=== PATIENT | male | born 1990 | race Caucasian/White ===

== ENCOUNTER 2019-06-07 11:36 | Emergency (ER) | payer MEDICAID, SELFPAY ==
[2019-06-07 11:41] VITALS: BP 149/86; PULSE 99; RESP 18; TEMP 36.2; O2SAT 94
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
[2019-06-07] MEDS: Acetaminophen 325 MG TAB 650 MG PO (12:23)
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
--- NOTE | 2019-06-07 13:21 | DI.VRAD_ITS ---
PROCEDURE INFORMATION: Exam: XR Left Shoulder Exam date and time: 06/07/2019 12:46 PM Age: 29 years old Clinical history: Pain; Shoulder; Left TECHNIQUE: Imaging protocol: XR Left shoulder. Views: 2 or more views. COMPARISON: No relevant prior studies available. FINDINGS: Bones/joints: Normal. Soft tissues: Normal. IMPRESSION: No acute findings. Dictated and Authenticated by: Matias Cosme MD. Ordering:LANEY Donnelly MD
--- NOTE | 2019-06-07 13:23 | DI.VRAD_ITS ---
PROCEDURE INFORMATION: Exam: XR Left Elbow Exam date and time: 06/07/2019 12:50 PM Age: 29 years old Clinical history: Pain; Elbow; Left TECHNIQUE: Imaging protocol: XR Left elbow. Views: 3 or more views. COMPARISON: No relevant prior studies available. FINDINGS: Bones/joints: Slight irregularity to the coronoid process, likely chronic. No fracture or dislocation. No joint effusion. Soft tissues: Normal. IMPRESSION: No acute findings. Dictated and Authenticated by: Matias Cosme MD. Ordering:LANEY Donnelly MD
[2019-06-07 13:39] VITALS: BP 128/90; PULSE 85; RESP 16; TEMP 37; O2SAT 96
== END 2019-06-07 13:45 | disposition home or self-care (01) ==
PROVIDERS: Emergency Provider Physician Assistant; PCP General Practice
DX: S09.90XA Unspecified injury of head, initial encounter (principal); S40.012A Contusion of left shoulder, initial encounter; S40.022A Contusion of left upper arm, initial encounter; S20.212A Contusion of left front wall of thorax, initial encounter; R51 Headache; R11.2 Nausea with vomiting, unspecified; V47.5XXA Car driver injured in collision with fixed or stationary object in traffic accident, initial encounter
CPT/HCPCS: 99284; 70450; 71046; 71100; 73030; 73080; 99285

== ENCOUNTER 2019-08-09 13:29 | Emergency (ER) | payer MEDICAID, SELFPAY ==
[2019-08-09 13:34] VITALS: BP 117/56; PULSE 114; RESP 18; TEMP 38.3; O2SAT 95
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
[2019-08-09] MEDS: Normal Saline 1,000 ML 1000 ML IV ×3 (13:55→14:59)
[2019-08-09] MEDS: Acetaminophen 500 MG TAB 1000 MG PO (14:03)
[2019-08-09] MEDS: Ondansetron 4 MG/2 ML VIAL IVP (14:03)
[2019-08-09] MEDS: Ketorolac 15 MG/ML VIAL IVP (14:03)
[2019-08-09 14:05] LABS: Abs Immature Grans 0.01 k/cumm (0.0-0.09); Absolute Basophil Count 0.01 k/cumm (0.0-0.2); Absolute Eosinophil Count 0.04 k/cumm (0.0-0.7); Absolute Lymphocyte Count 0.54 k/cumm (1.2-3.4); Absolute Neutrophil Count 5.33 k/cumm (1.2-6.7); Basophils % 0.2; Eosinophils % 0.6; HCT 43.3 % (40.0-50.0); HGB 15.4 g/dL (13.5-17.5); Immature Grans % 0.2 %; Lymphocytes % 8.4; Mean Corp. HGB Concentration 35.6 g/dL (32.0-36.0); Mean Corpuscular Hemoglobin 31.7 pg (27.0-33.0); Mean Corpuscular Volume 89.1 fL (80-95); Mean Platelet Volume 9.3 fL (8.0-11.0); Monocytes % 7.8; Neutrophils % 82.8; Platelet Count 212 x1000/uL (130-400); RBC 4.86 m/cumm (4.50-6.00); RBC Distribution Width 13.5 % (11.8-14.1); White Blood Cell Count 6.43 k/cumm (4.4-10.8)
[2019-08-09 14:18] LABS: ALT 24 U/L (16-63); AST 15 U/L (15-37); Albumin 3.9 g/dL (3.4-5.0); Alkaline Phosphatase 66 U/L (46-116); Anion Gap 11.3 mmol/L (3-11); BUN 15 mg/dL (7-18); Bilirubin, Total 0.5 mg/dL (0.2-1.0); CO2 25.7 mmol/L (21.0-32.0); CREATININE 0.97 mg/dL (0.70-1.30); Calcium 8.2 mg/dL (8.5-10.1); Chloride 100 mmol/L (98-107); Glucose 95 mg/dL (74-106); Potassium 3.9 mmol/L (3.5-5.1); Sodium 137 mmol/L (136-145); Total Protein 7.4 g/dL (6.4-8.2)
--- NOTE | 2019-08-09 14:36 | DI.RAD_ITS ---
EXAM: XR CHEST 2V PA AND LATERAL INDICATION: FEVER, COUGH. COMPARISON: XR RIBS LT W PA AND LAT CHEST from 06/07/2019 TECHNIQUE: 2D digital imaging was performed. FINDINGS: Heart size is normal. The lungs are well inflated and clear. No infiltrate or effusion is seen. Th ere is a question of mild bronchial wall thickening, which could indicate bronchitis. There is no pn eumothorax. No thoracic compression fractures are seen. IMPRESSION: Question of mild bronchial wall thickening, which could indicate bronchitis. No focal pulmonary cons olidation.
[2019-08-09 15:01] VITALS: BP 98/48; PULSE 96; RESP 15; TEMP 38; O2SAT 96
--- NOTE | 2019-08-09 15:31 | DI.VRAD_ITS ---
PROCEDURE INFORMATION: Exam: XR Chest, 2 Views Exam date and time: 08/09/2019 2:36 PM Age: 29 years old Clinical indication: Other: Fever, cough TECHNIQUE: Imaging protocol: XR of the chest Views: 2 views. COMPARISON: CR XR RIBS LT W PA LAT CHEST 06/07/2019 12:39 PM FINDINGS: Lungs: Bilateral perihilar haziness and streaky-like opacities. Mild segmental bronchial wall thickening. Pleural space: Unremarkable. No pleural effusion. No pneumothorax. Heart/Mediastinum: Unremarkable. No cardiomegaly. Bones/joints: Unremarkable. IMPRESSION: Findings favor an acute viral illness/bronchitis. No evidence of lobar pneumonia. Dictated and Authenticated by: Florentino Colmenares MD. Ordering:RAVINDER Moya MD
[2019-08-09 15:40] VITALS: BP 104/39; PULSE 98; RESP 16; TEMP 38.2; O2SAT 97
[2019-08-09 15:53] VITALS: BP 104/39; PULSE 98; RESP 16; TEMP 38.2; O2SAT 97
[2019-08-09] MEDS: Ondansetron O.D.T. 4 MG TABEF, 3 TABS/BTL PO (15:56)
--- NOTE | 2019-08-10 13:32 | NUR.NOTE ---
Nursing Note: Patient called asking about his flu result. After looking it up, he was told that it was negative. Sarai Jiménez.
== END 2019-08-09 15:58 | disposition home or self-care (01) ==
PROVIDERS: Emergency Provider Emergency Medicine; PCP General Practice
DX: J20.8 Acute bronchitis due to other specified organisms (principal); F17.210 Nicotine dependence, cigarettes, uncomplicated
CPT/HCPCS: 36415; 80053; 87449; 96361; 96374; 96375; 99284; 71046; 85025; J1885; J2405

== ENCOUNTER 2020-07-31 21:39 | Emergency (ER) | payer MEDICAID, SELFPAY ==
--- NOTE | 2020-07-31 21:50 | ED.GENADUL_ITS ---
Discharge Plan Disposition Patient Disposition: HOME Condition: Good Discharge Details Clinical Impression: Gastritis Primary Care Provider: Jacoby Velasquez ED Provider: Jose J Parsons Home Meds and New Rx's Prescriptions: New sucralfate [Carafate] 1 gram tablet 1 g PO BID Qty: 60 RF: 0 Continued bupropion HCl [Wellbutrin XL] 300 MG tablet extended release 24 hr 300 mg PO DAILY RF: 0 ibuprofen 600 MG tablet 600 mg PO QID PRN PRNQty: 30 RF: 0 lamotrigine [Lamictal] 200 mg Tablet 300 mg PO HS RF: 0 famotidine 20 mg Tablet 20 mg PO BID RF: 0 riboflavin (vitamin B2) [Vitamin B-2] 100 mg Tablet 100 mg PO DAILY RF: 0 Vyvanse 30 mg Capsule 30 mg PO DAILY RF: 0 Discharge Instructions Instructions: Gastritis (ED) Additional Instructions: At this time your laboratory work-up is very reassuring. Your symptoms appear consistent with gastritis at this time. Please resume taking your famotidine, continue to take the omeprazole that you are prescribed, and take the new Carafate as directed. Use the Zofran as needed. Avoid any spicy foods, caffeine-based products, ibuprofen, or Tylenol. If your symptoms do not improve over the next week, you may require further testing to look for something called h. pylori, which is a type of bacteria that can cause chronic gastritis. If you notice any worsening of your symptoms, or any new symptoms such as vomiting, diarrhea, fever, chills, shortness of breath, chest pain, numbness, weakness, or fainting , please return immediately to the emergency department for reevaluation. Please follow up with your primary care provider as soon as possible for reassessment and reevaluation. As always, it was a pleasure participating in your medical care today. Stand Alone Forms: Work Release Medical Decision Making 30-year-old male with a past medical history of gastritis, mood disorder, presents today for evaluation of epigastric pain, nausea and vomiting. 3 days ago the patient states that he had mild epigastric pain, had an episode of vomiting with a small amount of blood, his symptoms had 2-3 episodes of vomiting over the last 3 days, none of the other episodes have had any blood. He has not had any desire to eat, he has felt nauseous. He did see an urgent care in [place], at which time they prescribed omeprazole and Zofran, which she states has not helped. He normally takes famotidine twice daily but was told to stop this. Patient denies any history of previous abdominal surgeries. He denies any recent spicy food intake, alcohol intake, or change in diet. He denies any other complaints at this time. Symptoms are made worse with food. Improved by nothing. He has not been drinking any significant caffeine over the last few days. No other modifying factors. Physical exam shows no signs of an acute surgical abdomen, mild left upper quadrant tenderness. Symptoms appear c onsistent with notable gastritis. We will do IV Protonix and famotidine, gently rehydrate with a liter of normal saline, give a GI cocktail and Carafate, get basic labs to rule out pancreatitis, monitor closely and reassess. No indication for emergent surgeries at this time. 11:35 PM Patient's laboratory work-up has returned, after GI cocktail and Protonix and famotidine he is feeling better. Laboratory work-up is normal, hemoglobin stable, electrolytes normal, lipase normal. Patient is feeling better and was able to tolerate a p.o. trial here in the ED. At this time signs and symptoms appear consistent with gastritis. Repeat exam continues to show no signs of an acute surgical abdomen, no indication for emergent imaging. Will recommend continuation of omeprazole and famotidine at home, will give a prescription for Carafate. Recommend avoidance of spicy foods, citrus-based products, caffeine, coffee. Also discussed with him the importance of follow-up with his PCP for potential helical factor pylori testing, as well as potential EGD in the future if his symptoms do not improve. Discussed red flags which to return. I have extensively reviewed the treatment plan and discharge instructions with the patient. I have addressed all patient concerns at this time. The patient was made aware of what symptoms to monitor for that would warrant a return to the emergency department. Discussed the plan with the patient, they demonstrate verbal understanding and agreement with our assessment and plan at this time. The documentation in this chart was dictated using [employer] dictation software. Please excuse any dictation errors. HPI General Date/Time Provider Initiated Documentation: 07/31/20 21:41 . HPI Narrative: 30-year-old male with a past medical history of gastritis, mood disorder, presents today for evaluation of epigastric pain, nausea and vomiting. 3 days ago the patient states that he had mild epigastric pain, had an episode of vomiting with a small amount of blood, his symptoms had 2-3 episodes of vomiting over the last 3 days, none of the other episodes have had any blood. He has not had any desire to eat, he has felt nauseous. He did see an urgent care in [place], at which time they prescribed omeprazole and Zofran, which she states has not helped. He normally takes famotidine twice daily but was told to stop this. Patient denies any history of previous abdominal surgeries. He denies any recent spicy food intake, alcohol intake, or change in diet. He denies any other complaints at this time. Symptoms are made worse with food. Improved by nothing. He has not been drinking any significant caffeine over the last few days. No other modifying factors. Related Data Home Medications Medication Instructions Recorded Confirmed bupropion HCl [Wellbutrin XL] 300 mg PO DAILY 06/08/14 07/31/20 ibuprofen 600 mg PO QID PRN PRN #30 tab 02/07/16 07/31/20 famotidine 20 mg PO BID 06/07/19 07/31/20 lamotrigine [Lamictal] 300 mg PO HS 06/07/19 07/31/20 Vyvanse 30 mg PO DAILY 07/31/20 07/31/20 riboflavin (vitamin B2) [Vitamin 100 mg PO DAILY 07/31/20 07/31/20 B-2] sucralfate [Carafate] 1 g PO BID #60 tab 07/31/20 Previous Rx's Medication Instructions Recorded ibuprofen 600 mg PO QID PRN PRN #30 tab 02/07/16 sucralfate [Carafate] 1 g PO BID #60 tab 07/31/20 Allergies Allergy/AdvReac Type Severity Reaction Status Date / Time No Known Allergies Allergy Unverified 08/09/19 13:38 General KEN: 3 Review of Systems All systems reviewed & are unremarkable except as noted in HPI and below PFSH Medical History (Updated 07/31/20 @ 21:55 by Jose J Parsons DO) No significant past medical history Surgical History History of hand surgery Social History Smoking/Tobacco Use Status: Current every day Smoking risk assessment performed?: Yes Alcohol Intake: current Alcohol Intake frequency: a few times a month Drug use: Current Sobriety Substance use type: does not use Do you feel safe at home: Yes Do you feel safe in your relationship?: Yes Exam Narrative Exam Narrative: 1.Const: Well-nourished, Well-developed, appearing stated age 2.Eyes: PERRL, no conjunctival injection, and symmetrical lids. 3.ENT: Atraumatic external nose and ears. Notably poor dentition, notably dry MM. Neck: Symmetric, trachea midline, No thyromegaly. 4.CVS: +S1/S2, No murmurs or gallops. Peripheral pulses 2+ and equal in all extremities. Brisk capillary refill in all extremities. 5.RESP: Unlabored respiratory effort. Clear to auscultation bilaterally. No wheezes rales or rhonchi 6.GI: Soft, nondistended, no hepatosplenomegaly. No guarding or rebound. No pain at McBurney's point, negative Beyer sign, mild epigastric tenderness in the left upper epigastric quadrant. No signs of an acute surgical abdomen. 7.MSK: Normocephalic/Atraumatic, Extremities w/o deformity or ttp No cyanosis or clubbing, Normal movement of all extremities 8.Skin: Warm, Dry. No rashes or lesions. 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 Sensation grossly intact, no focal neurologi c deficits. 10.Psych: (AAO) x3. Appropriate mood and affect
[2020-07-31 21:51] VITALS: BP 156/73; PULSE 104; RESP 16; TEMP 36.4; O2SAT 97
[2020-07-31 22:06] LABS: Nucleated RBC 0 %
[2020-07-31 22:08] LABS: MCHC 35.1 % (32.0-36.0)
[2020-07-31] MEDS: Normal Saline 1,000 ML 1000 ML IV (22:12)
[2020-07-31] MEDS: FAMOTIDINE 20 MG/50 ML BAG 200 MG IVPB (22:12)
[2020-07-31] MEDS: Sucralfate 1 GM TAB PO (22:13)
[2020-07-31] MEDS: Ondansetron 4 MG/2 ML VIAL IVP (22:17)
[2020-07-31] MEDS: Pantoprazole 40 MG VIAL IVP (22:17)
[2020-07-31 22:31] LABS: Abs Immature Grans 0.03 10^3/uL (0.0-0.06); Absolute Basophil Count 0.02 10^3/uL (0.0-0.2); Absolute Eosinophil Count 0.12 10^3/uL (0.0-0.7); Absolute Lymphocyte Count 2.61 10^3/uL (1.2-3.4); Absolute Monocyte Count 0.48 10^3/uL (0.1-0.8); Absolute Neutrophil Count 6.86 10^3/uL (1.2-6.7); Basophils % 0.2; Eosinophils % 1.2; HCT 46.2 % (40.0-50.0); HGB 16.2 g/dL (13.5-17.5); Immature Grans % 0.3; Lymphocytes % 25.8; MCH 30.9 pg (27.0-33.0); MCV 88.2 fL (80-95); Monocytes % 4.7; Neutrophils % 67.8; Platelet Count 267 10^3/uL (130-400); RBC 5.24 10^6/uL (4.36-5.78)
[2020-07-31 22:41] LABS: ALT 32 U/L (16-63); AST 16 U/L (15-37); Albumin 4.1 g/dL (3.4-5.0); Alkaline Phosphatase 73 U/L (46-116); BUN 15 mg/dL (7-18); Bilirubin, Total 0.5 mg/dL (0.2-1.0); Calcium 8.9 mg/dL (8.5-10.1); Chloride 102 mmol/L (98-107); Glucose 104 mg/dL (74-106); Potassium 3.6 mmol/L (3.5-5.1); Sodium 138 mmol/L (136-145); Total Protein 7.8 g/dL (6.4-8.2)
[2020-07-31 22:43] LABS: WBC 10.12 10^3/uL (4.4-10.8)
[2020-07-31 22:54] LABS: Lipase 74 U/L (73-393)
[2020-07-31 23:28] VITALS: BP 142/86; PULSE 82; RESP 16; O2SAT 98
--- NOTE | 2020-07-31 23:39 | NUR.NOTE ---
referal sent to cm for establihment of pcp 07/31/20Nursing Note:
== END 2020-07-31 23:35 | disposition home or self-care (01) ==
PROVIDERS: Emergency Provider Student in an Organized Health Care Education/Training Program; PCP General Practice
DX: K29.00 Acute gastritis without bleeding (principal); R11.2 Nausea with vomiting, unspecified
CPT/HCPCS: 36415; 80053; 83690; 96361; 96365; 96375; 99284; 85025; J2405

== ENCOUNTER 2020-10-17 21:27 | Emergency (ER) | payer MEDICAID, SELFPAY ==
[2020-10-17 21:40] VITALS: BP 125/75; PULSE 95; RESP 18; TEMP 36; O2SAT 96
[2020-10-17] MEDS: Cyclobenzaprine 10 MG TAB PO (22:11)
[2020-10-17] MEDS: Ibuprofen 800 MG TAB PO (22:11)
[2020-10-17] MEDS: Cyclobenzaprine 10 MG TAB, 3 TABS/BTL PO (22:17)
--- NOTE | 2020-10-17 22:17 | ED.GENADUL_ITS ---
Discharge Plan Disposition Patient Disposition: HOME Condition: Stable Discharge Details Clinical Impression: Back muscle spasm Primary Care Provider: Romy Sampson ED Provider: Nela Leung Home Meds and New Rx's Prescriptions: Continued bupropion HCl [Wellbutrin XL] 300 MG tablet extended release 24 hr 300 mg PO DAILY RF: 0 ibuprofen 600 MG tablet 600 mg PO QID PRN PRNQty: 30 RF: 0 lamotrigine [Lamictal] 200 mg Tablet 300 mg PO HS RF: 0 famotidine 20 mg Tablet 20 mg PO BID RF: 0 riboflavin (vitamin B2) [Vitamin B-2] 100 mg Tablet 100 mg PO DAILY RF: 0 Vyvanse 30 mg Capsule 30 mg PO DAILY RF: 0 Discharge Instructions Instructions: Muscle Spasm (ED) Additional Instructions: Alternate ice and heat. Take Tylenol and or ibuprofen every 4-6 hours as needed for pain. Use Flexeril as directed please be aware it may cause you to be sleepy no operating heavy machinery or driving while using this medication Try massage he should feel better in the next few Return to the ED R for any worsening shortness of breath, loss of bowel or bladder control or any concern. Stand Alone Forms: Work Release Referrals: Romy Sampson [Primary Care Provider] - Medical Decision Making 30-year-old male presents to the ER with chief complaint of left-sided posterior back pain after heavy lifting while changing out a transmission in a car. He states this happened around 2:00 this afternoon. He did take some ibuprofen at 2:00. Pain is worse with movement. He denies any loss of bowel or bladder control. Denies any numbness no other complaints. Patient given Flexeril, ibuprofen 80 mg and lidocaine patch. Clinical exam is consistent with a muscle spasm and muscle strain. No evidence of midline C, T, L-spine tenderness no crepitus no step-off. Patient is alert and oriented. Denies any loss of bowel or bladder control no radiation of pain into lower extremities, no saddle anesthesia. At this time I do not feel that imaging is necessary. Patient is requesting a work note. Discussed home care and strict return instructions, verbalized HPI General Mode of arrival: ambulatory . Date/Time Provider Initiated Documentation: 10/17/20 21:58 . Limitations to Documentation: no limitations . Information obtained by: patient . HPI Narrative: 30-year-old male presents to the ER with chief complaint of left-sided posterior back pain after heavy lifting while changing out a transmission in a car. He states this happened around 2:00 this afternoon. He did take some ibuprofen at 2:00. Pain is worse with movement. He denies any loss of bowel or bladder control. Denies any numbness no other complaints. Related Data Home Medications Medication Instructions Recorded Confirmed bupropion HCl [Wellbutrin XL] 300 mg PO DAILY 06/08/14 10/17/20 ibuprofen 600 mg PO QID PRN PRN #30 tab 02/07/16 10/17/20 famotidine 20 mg PO BID 06/07/19 10/17/20 lamotrigine [Lamictal] 300 mg PO HS 06/07/19 10/17/20 Vyvanse 30 mg PO DAILY 07/31/20 10/17/20 riboflavin (vitamin B2) [Vitamin 100 mg PO DAILY 07/31/20 10/17/20 B-2] Previous Rx's Medication Instructions Recorded ibuprofen 600 mg PO QID PRN PRN #30 tab 02/07/16 Allergies Allergy/AdvReac Type Severity Reaction Status Date / Time No Known Allergies Allergy Unverified 10/17/20 21:53 General Stated Complaint: Nk/Back Pain KEN: 3 Review of Systems All systems reviewed & are unremarkable except as noted in HPI and below ENT Ears, Nose, Mouth, and Throat: Denies neck pain Musculoskeletal Musculoskeletal: Reports as per HPI, Reports back pain (Muscle spasm noted to the left trapezius), Denies deformity, Denies limited range of motion, Denies neck pain, Denies numbness, Denies radiating pain into limb, Denies stiffness and Denies tingling Neurologic Neurologic: Denies numbness and Denies tingling [facility] Medical History No significant past medical history Surgical History History of hand surgery Social History Smoking/Tobacco Use Status: Current every day Smoking risk assessment performed?: Yes Alcohol Intake: never Drug use: Never Substance use type: does not use Do you feel safe at home: Yes Do you feel safe in your relationship?: Yes Exam Narrative Exam Narrative: Constitutional: Alert and oriented x3. Appears stated age. Normal body habitus. Head: Normocephalic, no trauma. Eyes: Pupils PERRLA, Red reflex noted, EOM's intact. Eyelids symmetrical without lesions, discharge, or swelling. ENT: Bilateral TM's WNL, External ear normal to inspection, no mastoid TTP, swelling, or erythema, Nasal turbinates WNL, no nasal discharge. Normal dentition, Posterior pharynx WNL, no exudate. Chest: RRR, Normal S1, S2, distal pulses intact. Resp: Lungs clear to auscultation bilaterally, no wheezes, rales, or rhonchi. Musculoskeletal: Normal gait, 5/5 strength to all four extremities. Muscle spasm noted left paraspinous. No midline C-spine, T-spine or L-spine tenderness no crepitus no step-off with palpation. Skin: No suspicious rashes or lesions. Capillary refill less than 2 sec. Neurologic: Cranial nerves II-XII intact. Alert and oriented x 3. DTR's intact. Hematologic/Lymphatic: No ecchymosis, no lymphadenopathy. Course Vital Signs Vital signs: Vital Signs Temperature 36.0 C L 10/17/20 21:40 Pulse 95 H 10/17/20 21:40 Respiratory Rate 18 10/17/20 21:40 Blood Pressure 125/75 10/17/20 21:40 Pulse Oximetry 96 10/17/20 21:40 Temperature 36.0 C L 10/17/20 21:40 Temperature Source Skin 10/17/20 21:40 Pulse 95 H 10/17/20 21:40 Respiratory Rate 18 10/17/20 21:40 Respiratory Effort Non-Labored 10/17/20 21:55 Blood Pressure 125/75 10/17/20 21:40 Blood Pressure Position Sitting 10/17/20 21:40 Pulse Oximetry 96 10/17/20 21:40 Oxygen Delivery Method Room Air 10/17/20 21:40 Oxygen Flow Rate 0 10/17/20 21:40 Pain Level 6 10/17/20 21:56
[2020-10-17] MEDS: Lidocaine 5% Patch 1 PATCH TP (22:18)
== END 2020-10-17 22:25 | disposition home or self-care (01) ==
PROVIDERS: Emergency Provider Registered Nurse Emergency; PCP Nurse Practitioner Family
DX: M62.830 Muscle spasm of back (principal); X50.0XXA Overexertion from strenuous movement or load, initial encounter
CPT/HCPCS: 99283

== ENCOUNTER 2021-01-02 21:24 | Emergency (ER) | payer MEDICAID, SELFPAY ==
[2021-01-02 21:28] VITALS: BP 143/100; PULSE 75; RESP 16; TEMP 37.2; O2SAT 97
--- NOTE | 2021-01-02 21:32 | ED.GENADUL_ITS ---
Discharge Plan Disposition Patient Disposition: HOME Condition: Good Discharge Details Clinical Impression: URI, acute, Pharyngitis Primary Care Provider: Romy Sampson ED Provider: Jose J Parsons Home Meds and New Rx's Prescriptions: Continued bupropion HCl [Wellbutrin XL] 300 MG tablet extended release 24 hr 300 mg PO DAILY RF: 0 ibuprofen 600 MG tablet 600 mg PO QID PRN PRNQty: 30 RF: 0 lamotrigine [Lamictal] 200 mg Tablet 300 mg PO HS RF: 0 famotidine 20 mg Tablet 20 mg PO BID RF: 0 riboflavin (vitamin B2) [Vitamin B-2] 100 mg Tablet 100 mg PO DAILY RF: 0 Vyvanse 30 mg Capsule 30 mg PO DAILY RF: 0 Discharge Instructions Instructions: Pharyngitis (ED) Additional Instructions: At this time with hints of acute pharyngitis. Your strep test is negative. We will send for culture but this will take a few days to come back. Please drink plenty of fluids, perform salt water gargles, and take 1000 mg of Tylenol every 6 hours and 800 mg of ibuprofen every 6 hours to help with the pain and inflammation. These are the maximum doses. If you notice any worsening of your symptoms, or any new symptoms such as vomiting, diarrhea, fever, chills, shortness of breath, chest pain, numbness, weakness, or fainting , please return immediately to the emergency department for reevaluation. Please follow up with your primary care provider as soon as possible for reassessment and reevaluation. As always, it was a pleasure participating in your medical care today. Referrals: Romy Sampson [Primary Care Provider] - Medical Decision Making This is a pleasant 30-year-old male who presents today for evaluation of sore throat. Patient states that for the last 2 days he has had a mild sore throat, minimal cough. He took ibuprofen 15 minutes prior to arrival. He states that this did not improve his symptoms. He denies fever or chills. He denies difficulty swallowing, or difficulty controlling his secretions. He denies any nausea or vomiting. He has not had a Covid vaccine. He denies any recent exposure to Covid. No other complaints at this time. No other modifying factors. Exam shows no evidence of nuchal rigidity, airway compromise, or Ludewig's angina. Mild erythema in the posterior oropharynx, mild tonsillar exudates. Concern and differential is highest for strep. Symptoms appearing consistent with mono at this time. We will do send out Covid testing. Strep test negative take. Patient doing well. We will send for culture. Discharged with Tylenol Motrin. Discussed red flags which to return. I have extensively reviewed the treatment plan and discharge instructions with the patient. I have addressed all patient concerns at this time. The patient was made aware of what symptoms to monitor for that would warrant a return to the emergency department. Discussed the plan with the patient, they demonstrate verbal understanding and agreement with our assessment and plan at this time. The documentation in this chart was dictated using [email or web address] dictation software. Please excuse any dictation errors. HPI General Date/Time Provider Initiated Documentation: 01/02/21 21:26 . HPI Narrative: This is a pleasant 30-year-old male who presents today for evaluation of sore throat. Patient states that for the last 2 days he has had a mild sore throat, minimal cough. He took ibuprofen 15 minutes prior to arrival. He states that this did not improve his symptoms. He denies fever or chills. He denies difficulty swallowing, or difficulty controlling his secretions. He denies any nausea or vomiting. He has not had a Covid vaccine. He denies any recent exposure to Covid. No other complaints at this time. No other modifying factors. Related Data Home Medications Medication Instructions Recorded Confirmed bupropion HCl [Wellbutrin XL] 300 mg PO DAILY 06/08/14 01/02/21 ibuprofen 600 mg PO QID PRN PRN #30 tab 02/07/16 01/02/21 famotidine 20 mg PO BID 06/07/19 01/02/21 lamotrigine [Lamictal] 300 mg PO HS 06/07/19 01/02/21 Vyvanse 30 mg PO DAILY 07/31/20 01/02/21 riboflavin (vitamin B2) [Vitamin 100 mg PO DAILY 07/31/20 01/02/21 B-2] Previous Rx's Medication Instructions Recorded ibuprofen 600 mg PO QID PRN PRN #30 tab 02/07/16 Allergies Allergy/AdvReac Type Severity Reaction Status Date / Time No Known Allergies Allergy Unverified 10/17/20 21:53 General KEN: 3 Review of Systems All systems reviewed & are unremarkable except as noted in HPI and below [facility] Medical History (Updated 01/02/21 @ 21:38 by Jose J Parsons DO) No significant past medical history Surgical History History of hand surgery Social History Smoking/Tobacco Use Status: Current every day Smoking risk assessment performed?: Yes Alcohol Intake: never Drug use: Never Substance use type: does not use Do you feel safe at home: Yes Do you feel safe in your relationship?: Yes Exam Narrative Exam Narrative: 1.Const: Well-nourished, Well-developed, appearing stated age 2.Eyes: PERRL, no conjunctival injection, and symmetrical lids. 3.ENT: Atraumatic external nose and ears. Moist MM. Neck: Symmetric, trachea midline, No thyromegaly. No nuchal rigidity, no neck tenderness. Ears canals are unremarkable, tympanic membranes are garcia and pearly, mild erythema around them no. No purulence. Posterior oropharynx is notably red, irritated and inflamed. Minimal tonsillar exudate. No tonsillar enlargement. No signs of airway compromise. 4.CVS: +S1/S2, No murmurs or gallops. Peripheral pulses 2+ and equal in all extremities. Brisk capillary refill in all extremities. 5.RESP: Unlabored respiratory effort. Clear to auscultation bilaterally. No wheezes rales or rhonchi 6.GI: Soft, Nontender/Nondistended, No hepatosplenomegaly. No guarding or rebound. 7.MSK: Normocephalic/Atraumatic, Extremities w/o deformity or ttp No cyanosis or clubbing, Normal movement of all extremities 8.Skin: Warm, Dry. No rashes or lesions. 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 Sensation grossly intact, no focal neurologic deficits. 10.Psych: (AAO) x3. Appropriate mood and affect
[2021-01-05 13:05] LABS: COVID-19 RT-PCR UVMMC Result Negative (Negative)
== END 2021-01-02 21:50 | disposition home or self-care (01) ==
PROVIDERS: Emergency Provider Student in an Organized Health Care Education/Training Program; PCP Nurse Practitioner Family
DX: J02.9 Acute pharyngitis, unspecified (principal)
CPT/HCPCS: 87880; 99282; U0003; 87081

== ENCOUNTER 2021-07-08 17:50 | Emergency (ER) | payer MEDICAID, SELFPAY ==
[2021-07-08 17:56] VITALS: BP 138/91; PULSE 91; RESP 18; TEMP 36.8; O2SAT 97
--- NOTE | 2021-07-08 18:50 | ED.GENADUL_ITS ---
Discharge Plan Disposition Patient Disposition: HOME Condition: Good Discharge Details Clinical Impression: Abscess Primary Care Provider: Romy Sampson ED Provider: Berenice Nelson Home Meds and New Rx's Prescriptions: New cephalexin 500 mg capsule 500 mg PO Q6H Qty: 28 RF: 0 Continued bupropion HCl [Wellbutrin XL] 300 MG tablet extended release 24 hr 300 mg PO DAILY RF: 0 ibuprofen 600 MG tablet 600 mg PO QID PRN PRNQty: 30 RF: 0 lamotrigine [Lamictal] 200 mg Tablet 300 mg PO HS RF: 0 famotidine 20 mg Tablet 20 mg PO BID RF: 0 riboflavin (vitamin B2) [Vitamin B-2] 100 mg Tablet 100 mg PO DAILY RF: 0 Vyvanse 30 mg Capsule 30 mg PO DAILY RF: 0 Discharge Instructions Instructions: Abscess (ED) Additional Instructions: warm compresses keflex until completed recheck sunday with your orthopedist tyleno/motrin as needed for pain return earlier with spreading redness, fever, worsening pain Stand Alone Forms: Work Release Referrals: Romy Sampson [Primary Care Provider] - Medical Decision Making Needle aspiration secondary to recent surgery, irrigated, dressing applied Keflex 4 times daily for 7 days Yogurt daily while on antibiotics recommended Work note supplied will need to call orthopedics on Sunday and return earlier with new or worsening Medical Records Medical records reviewed: Yes I reviewed the patient's medical records. Lab Data Lab results reviewed: Yes I reviewed the patient's lab results. HPI General Mode of arrival: ambulatory . Date/Time Provider Initiated Documentation: 07/08/21 17:51 . Limitations to Documentation: no limitations . Information obtained by: patient . HPI Narrative: This is a 31-year-old male presents with wound to the palm of right hand. Patient is status post carpal tunnel release surgery on 16 June with had sutures removed on Sunday of this week. He noted some increase pain and purulent drainage yesterday. He denies any fever or chills. He has mild pain with movement of his thumb which is not new. He also has pain over the area which he suspects to be infected. He is otherwise reportedly healthy. Has not been on antibiotics recently. His surgery was reportedly uneventful. He has returned to work after being cleared by his surgeon at [facility] [place]. Related Data Home Medications Medication Instructions Recorded Confirmed bupropion HCl [Wellbutrin XL] 300 mg PO DAILY 06/08/14 07/08/21 ibuprofen 600 mg PO QID PRN PRN #30 tab 02/07/16 07/08/21 famotidine 20 mg PO BID 06/07/19 07/08/21 lamotrigine [Lamictal] 300 mg PO HS 06/07/19 07/08/21 Vyvanse 30 mg PO DAILY 07/31/20 07/08/21 riboflavin (vitamin B2) [Vitamin 100 mg PO DAILY 07/31/20 07/08/21 B-2] cephalexin 500 mg PO Q6H #28 cap 07/08/21 Previous Rx's Medication Instructions Recorded ibuprofen 600 mg PO QID PRN PRN #30 tab 02/07/16 cephalexin 500 mg PO Q6H #28 cap 07/08/21 Allergies Allergy/AdvReac Type Severity Reaction Status Date / Time No Known Allergies Allergy Unverified 07/08/21 17:58 General Stated Complaint: Cellulitis KEN: 3 Review of Systems Narrative: Review of systems obtained x3 and negative aside from indication in [facility] PFSH All Active Problems (Updated 07/08/21 @ 18:41 by FIOR Crowder) Bronchitis (Acute) Back muscle spasm (Acute) URI, acute (Acute) Pharyngitis (Acute) Abscess (Acute) Medical History (Updated 07/08/21 @ 18:41 by FIOR Crowder) No significant past medical history Surgical History History of hand surgery Social History Smoking/Tobacco Use Status: Current every day Smoking risk assessment performed?: Yes Alcohol Intake: never Drug use: Never Substance use type: does not use Do you feel safe at home: Yes Do you feel safe in your relationship?: Yes Exam Const General: cooperative, comfortable and no acute distress Neuro General: patient alert and patient oriented x3 Extrem Hand/finger images: 1. Purulent drainage and fluctuance, no wound dehiscence, approximately 2 mm of erythema swelling site, neurovascularly intact, no lymphangitis, no crepitus Course Vital Signs Vital signs: Vital Signs Temperature 36.8 C 07/08/21 17:56 Pulse 91 H 07/08/21 17:56 Respiratory Rate 18 07/08/21 17:56 Blood Pressure 138/91 H 07/08/21 17:56 Pulse Oximetry 97 07/08/21 17:56 Temperature 36.8 C 07/08/21 17:56 Temperature Source Temporal Artery Scan 07/08/21 17:56 Pulse 91 H 07/08/21 17:56 Respiratory Rate 18 07/08/21 17:56 Respiratory Effort Non-Labored 07/08/21 18:00 Blood Pressure 138/91 H 07/08/21 17:56 Blood Pressure Position Sitting 07/08/21 17:56 Pulse Oximetry 97 07/08/21 17:56 Oxygen Delivery Method Room Air 07/08/21 17:56 Oxygen Flow Rate 0 07/08/21 17:56 Pain Level 8 07/08/21 17:56 Procedures Abscess I/D Site: Hand Side (if applicable): Right Local Anesthetic: Lidocaine 1% Amount of anesthesia used (mL): 2 Technique: Needle Aspiration Amount of fluid expressed (mL): 2 Irrigation: Yes Packing used?: None Complications: Pain
[2021-07-08 19:17] VITALS: BP 138/91; PULSE 91; RESP 18; TEMP 36.8; O2SAT 97
== END 2021-07-08 19:04 | disposition home or self-care (01) ==
PROVIDERS: Emergency Provider Physician Assistant; PCP Nurse Practitioner Family
DX: T81.41XA Infection following a procedure, superficial incisional surgical site, initial encounter (principal); L02.511 Cutaneous abscess of right hand
CPT/HCPCS: 10160